=== PATIENT | female | born 1955 | race Caucasian/White ===

== ENCOUNTER 2017-05-24 14:32 | Inpatient (IN) | payer MEDICAID ==
[~2017-05-24] VITALS: Ht 165.1 cm; Wt 72.6 kg
[2017-05-24] MEDS ORDERED: Zyprexa PO (14:46)
--- NOTE | 2017-05-24 14:46 | NUR ---
Pt unable to provide complete information about her home medications, no information sent with pt from [facility] care facility.
--- NOTE | 2017-05-24 14:49 | NUR ---
pt is in room #1b. dr gonzales evalaued the pt.
[2017-05-24 15:09] LABS: BASOPHILS # (AUTO) 0.1 K/uL (0.0-8.0); EOSINOPHILS # (AUTO) 0.1 K/uL (0.0-0.7); EOSINOPHILS % (AUTO) 1.8 % (0.0-7.0); HEMATOCRIT 43.6 % (31.2-41.9); HEMOGLOBIN 15.1 g/dL (10.9-14.3); LYMPHOCYTES # (AUTO) 1.8 K/uL (20.0-40.0); MEAN CORPUSCULAR HEMOGLOBIN 29.8 uug (24.7-32.8); MEAN CORPUSCULAR HGB CONC 35 g/dL (32.3-35.6); MEAN CORPUSCULAR VOLUME 86.4 fL (75.5-95.3); MONOCYTES # (AUTO) 0.5 K/uL (2.0-10.0); MONOCYTES % (AUTO) 7.3 % (0.0-11.0); NEUTROPHILS # (AUTO) 4.7 K/uL (1.8-8.9); NEUTROPHILS % (AUTO) 64.9 % (38.5-71.5); PLATELET COUNT (AUTO) 256 K/uL (179-408); RED BLOOD CELL COUNT(AUTO) 5.05 MIL/uL (3.63-4.92); WHITE BLOOD COUNT (AUTO) 7.2 K/uL (3.8-11.8)
[2017-05-24 15:15] LABS: CREATININE 0.9 mg/dL (0.6-1.3); POTASSIUM 3.9 mmol/L (3.5-5.1)
[2017-05-24 15:30] LABS: BILIRUBIN,TOTAL 0.4 mg/dL (0.2-1.0); TOTAL PROTEIN, SERUM 6.9 g/dL (6.4-8.2)
[2017-05-24 16:08] LABS: *BILIRUBIN,URIN NEGATIVE (NEGATIVE); *BLOOD, URINE NEGATIVE (NEGATIVE); *CLARITY,URINE CLEAR (CLEAR); *COLOR,URINE LIGHT YELLOW (YELLOW); *KETONES,URINE NEGATIVE (NEGATIVE); *PROTEIN,URINE NEGATIVE (NEGATIVE); *UROBILINOGEN,URINE 0.2 E.U./dl (NORMAL); LEUKOCYTE ESTERASE ,URINE NEGATIVE (NEGATIVE); NITRITE, URINE NEGATIVE (NEGATIVE); PH,URINE 6.5 (5.0-8.0); UGLUCOSE NEGATIVE (NEGATIVE)
--- NOTE | 2017-05-24 16:10 | NUR ---
per ER , EPIC call placed
[2017-05-24 16:14] LABS: SQUAMOUS EPITHELIAL CELL,UR FEW /HPF (NONE SEEN); WBC,URINE 0-3 /HPF (0-3)
[2017-05-24] MEDS ORDERED: IV NS 1000 ML 1,000 ML IV ONE (16:30)
--- NOTE | 2017-05-24 17:00 | NUR ---
pt was transfered to room #218. report was given to rn m/s.
--- NOTE | 2017-05-24 17:19 | NUR ---
PT ARRIVED ON A GURNEY CALM, COOPERATIVE, NO SIGN OF RESPIRATORY DISTRESS. PT HAS A COLOSTOMY ON THE LEFT SIDE OF THE ABDOMEN. SKIN IS INTACT, NAILS ARE LONG BUT INTACT. PT VERBALIZES THAT SHE CAME FROM [facility]. HER GOAL IS TO CONTINUE CHEMO THERAPY. PT HAD THE COLOSTOMY IN 2015. IV INTACT. ALLERGIES TO SULFA. HX OF LYMPHOMA. CONTINUE TO MONITOR PT.
[2017-05-24 18:00] VITALS: BP 122/71
--- NOTE | 2017-05-24 18:36 | NUR ---
PT OBSERVED RESTING IN BED EATING DINNER. NO SIGNS OF DISTRESS CALM AND COOPERATIVE. AOX4, CAN VERBALIZE NEEDS. CONTINUE TO MONITOR PT. BP 122/71. PT VERBALIZES THAT SHE CAN NOT AMBULATE SINCE 2014.
--- NOTE | 2017-05-24 19:35 | NUR ---
RECEIVED PT IN BED. PT REQUESTED TO HAVE HER DIAPER CHANGE. ASSISTED TO CHANGE HER DIAPER WHICH WAS SOAKED IN URINE AND HAD LEAKED IN THE UNDERPAD. ASSISTED TO CHANGE COLOSTOMY BAG. STOOL WAS BROWN AND SOFT/FORMED. STOMA BEEFY RED IN COLOR. NO S/S INFECTION OR INFLAMMATION. IV SITE PATENT/INTACT AND FLUSHING WELL. NO S/S INFILTRATION OR INFECTION NOTED. PT ABLE TO RETURN DEMONSTRATE USE OF CALL LIGHT.
[2017-05-24 20:27] VITALS: BP 123/81
[2017-05-24] MEDS ORDERED: QUETIAPINE FUMARATE 25 MG TABLET PO PRN (20:30)
[2017-05-24] MEDS ORDERED: MORPHINE SULFATE 2 MG/1 ML DISP.SYRIN IV PRN (20:30)
[2017-05-24] MEDS ORDERED: TEMAZEPAM 15 MG CAPSULE PO PRN (20:30)
[2017-05-24] MEDS: OLANZAPINE 5 MG TABLET PO SCH (21:36)
[2017-05-24] MEDS ORDERED: OLANZAPINE 5 MG TABLET ONE (21:51)
[2017-05-25 06:00] VITALS: BP 120/60
[2017-05-25 06:41] LABS: THYROID STIMULATING HORMONE 1.965 mIU/mL (0.358-3.740)
[2017-05-25 06:50] LABS: BASOPHILS % (AUTO) 0.6 % (0.0-2.0); EOSINOPHILS # (AUTO) 0.2 K/uL (0.0-0.7); EOSINOPHILS % (AUTO) 3.1 % (0.0-7.0); HEMATOCRIT 39.5 % (31.2-41.9); HEMOGLOBIN 13.3 g/dL (10.9-14.3); LYMPHOCYTES # (AUTO) 2.4 K/uL (20.0-40.0); LYMPHOCYTES % (AUTO) 33.3 % (20.5-51.5); MEAN CORPUSCULAR HEMOGLOBIN 29.5 uug (24.7-32.8); MEAN CORPUSCULAR HGB CONC 34 g/dL (32.3-35.6); MEAN CORPUSCULAR VOLUME 87.4 fL (75.5-95.3); MONOCYTES # (AUTO) 0.7 K/uL (2.0-10.0); MONOCYTES % (AUTO) 9.6 % (0.0-11.0); NEUTROPHILS # (AUTO) 3.8 K/uL (1.8-8.9); NEUTROPHILS % (AUTO) 53.4 % (38.5-71.5); PLATELET COUNT (AUTO) 241 K/uL (179-408); RED BLOOD CELL COUNT(AUTO) 4.52 MIL/uL (3.63-4.92); WHITE BLOOD COUNT (AUTO) 7.2 K/uL (3.8-11.8)
[2017-05-25 06:59] LABS: CREATININE 0.8 mg/dL (0.6-1.3); MAGNESIUM 1.8 mg/dL (1.8-2.4); POTASSIUM 4.2 mmol/L (3.5-5.1)
[2017-05-25] MEDS ORDERED: MORPHINE SULFATE 4 MG/1 ML DISP.SYRIN IV PRN (07:15)
[2017-05-25] MEDS: PANTOPRAZOLE SODIUM 40 MG TABLET.DR PO SCH (07:59)
[2017-05-25] MEDS ORDERED: IOHEXOL 300MG/ML 100 ML INFUS..BTL ONE (08:45)
[2017-05-25] MEDS ORDERED: IV NORMAL SALINE 250 ML IV ONE (08:45)
--- NOTE | 2017-05-25 09:06 | NUR ---
PT ARRIVED FROM CT SCAN. PT IS CALM, COOPERATIVE, NO SIGNS OF RESPIRATORY DISTRESS. STABLE.
--- NOTE | 2017-05-25 09:49 | NUR ---
ZYPREXA PULLED OUT OF THE PYXIS 05/24/17 AT 1251.
[2017-05-25 11:30] VITALS: BP_SYST 84; BP_SYST 96; BP_DIAS 51; BP_DIAS 55
[2017-05-25 15:42] VITALS: BP 99/61
--- NOTE | 2017-05-25 19:33 | NUR ---
pt resting, no signs of respiratory distress, bed at lowest locked position. pt calm. continue to monitor.
[2017-05-25] MEDS: OLANZAPINE 5 MG TABLET PO SCH (20:17)
[2017-05-25] MEDS: ATORVASTATIN 20 MG TABLET PO SCH (20:17)
[2017-05-25 20:42] VITALS: BP 122/71
[2017-05-25] MEDS: IV 1/2NS 1000 ML 1,000 ML IV PRN (22:19)
[2017-05-26 04:35] VITALS: BP 115/81
--- NOTE | 2017-05-26 05:51 | NUR ---
pt alert,oriented, admitted for generalized weakness,pt been unable to walk since 2014, in fact pt have slight footdrop to left foot, pt still able to turn and move in the bed, voiding using bedpan .colostomy with formed stool, intact and clean.continue with iv fluids, denies any pain overnight,slept well,vss,afebrile.
[2017-05-26] MEDS: PANTOPRAZOLE SODIUM 40 MG TABLET.DR PO SCH (06:24)
--- NOTE | 2017-05-26 07:40 | NUR ---
RECEIVED PT IN BED.. IV SITE PATENT/INTACT AND FLUSHING WELL. NO S/S INFILTRATION OR INFECTION NOTED. PT ABLE TO RETURN DEMONSTRATE USE OF CALL LIGHT.
[2017-05-26 10:54] VITALS: BP 116/71
[2017-05-26] MEDS: ONDANSETRON 4 MG/2 ML VIAL IV PRN (10:56)
--- NOTE | 2017-05-26 11:00 | NUR ---
PT SEEN BY NEUROLOGIST
[2017-05-26] MEDS: IV 1/2NS 1000 ML 1,000 ML IV PRN (12:39)
[2017-05-26 15:22] VITALS: BP 111/62
[2017-05-26] MEDS: ACETAMINOPHEN 325 MG TABLET PO PRN ×2 (15:37→21:14)
[2017-05-26 20:11] VITALS: BP 119/69
[2017-05-26] MEDS: OLANZAPINE 5 MG TABLET PO SCH (21:14)
[2017-05-26] MEDS: ATORVASTATIN 20 MG TABLET PO SCH (21:14)
[2017-05-27 04:06] LABS: VIT D, 25-HYDROXY 19.6 ng/mL (30.0-100.0)
--- NOTE | 2017-05-27 05:30 | NUR ---
NSG: NO ACUTE DISTRESS NOTED. DENIES DISCOMFORT. V/S STABLE. ALL NEEDS ATTENDED.
[2017-05-27] MEDS: PANTOPRAZOLE SODIUM 40 MG TABLET.DR PO SCH (06:16)
[2017-05-27 06:32] VITALS: BP 122/69
[2017-05-27 07:01] LABS: BASOPHILS # (AUTO) 0.1 K/uL (0.0-8.0); EOSINOPHILS # (AUTO) 0.2 K/uL (0.0-0.7); EOSINOPHILS % (AUTO) 3.1 % (0.0-7.0); HEMATOCRIT 38.4 % (31.2-41.9); HEMOGLOBIN 12.9 g/dL (10.9-14.3); LYMPHOCYTES # (AUTO) 1.9 K/uL (20.0-40.0); LYMPHOCYTES % (AUTO) 29.4 % (20.5-51.5); MEAN CORPUSCULAR HEMOGLOBIN 29.2 uug (24.7-32.8); MEAN CORPUSCULAR HGB CONC 34 g/dL (32.3-35.6); MEAN CORPUSCULAR VOLUME 86.8 fL (75.5-95.3); MONOCYTES # (AUTO) 0.6 K/uL (2.0-10.0); MONOCYTES % (AUTO) 9.3 % (0.0-11.0); NEUTROPHILS # (AUTO) 3.7 K/uL (1.8-8.9); NEUTROPHILS % (AUTO) 57.2 % (38.5-71.5); PLATELET COUNT (AUTO) 236 K/uL (179-408); RED BLOOD CELL COUNT(AUTO) 4.43 MIL/uL (3.63-4.92); WHITE BLOOD COUNT (AUTO) 6.4 K/uL (3.8-11.8)
[2017-05-27 07:25] LABS: CREATININE 0.8 mg/dL (0.6-1.3); MAGNESIUM 1.9 mg/dL (1.8-2.4); PHOSPHOROUS 4.1 mg/dL (2.5-4.9); POTASSIUM 3.8 mmol/L (3.5-5.1)
[2017-05-27 10:44] VITALS: BP 111/64
[2017-05-27] MEDS: ONDANSETRON 4 MG/2 ML VIAL IV PRN (12:11)
[2017-05-27 15:19] VITALS: BP 121/68
[2017-05-27 20:14] VITALS: BP 101/55
[2017-05-27] MEDS: ATORVASTATIN 20 MG TABLET PO SCH (20:44)
[2017-05-27] MEDS: OLANZAPINE 5 MG TABLET PO SCH (20:47)
[2017-05-27] MEDS: ACETAMINOPHEN 325 MG TABLET PO PRN (20:57)
[2017-05-28] MEDS: PANTOPRAZOLE SODIUM 40 MG TABLET.DR PO SCH (06:06)
[2017-05-28 06:15] VITALS: BP 101/59
--- NOTE | 2017-05-28 06:36 | NUR ---
PATIENT IN BED ASLEEP AT THIS TIME. NO DISTRESS NOTED. VITAL SIGNS STABLE. OFFERED BEDPAN NEEDED. ALL NEEDS ATTENDED DO. BED LOCKED AND IN LOW POSITION WITH CALL LIGHT WITHIN REACH.
--- NOTE | 2017-05-28 08:00 | NUR ---
AWAKE ALERT AND ORIENTED X3 NO SIGNS OF DISTRESS OR PAIN
[2017-05-28] MEDS ORDERED: ATOR20TA PO (10:45)
[2017-05-28] MEDS ORDERED: QUET25TA PO (10:45)
--- NOTE | 2017-05-28 11:00 | NUR ---
SEEN BY DR MORRIS WITH DC PLAN ORDER [employer] TEACHER MADE AWARE
[2017-05-28 11:05] VITALS: BP 100/58
[2017-05-28] MEDS ORDERED: INFLUENZA VACCINE 2017-2018 0.5 ML DISP.SYRIN IM ONE (12:30)
[2017-05-28 15:32] VITALS: BP 106/64
[2017-05-28 20:00] VITALS: BP 122/85
[2017-05-28] MEDS: OLANZAPINE 5 MG TABLET PO SCH (20:13)
[2017-05-28] MEDS: ATORVASTATIN 20 MG TABLET PO SCH (21:41)
[2017-05-29] MEDS: PANTOPRAZOLE SODIUM 40 MG TABLET.DR PO SCH (06:02)
--- NOTE | 2017-05-29 06:48 | NUR ---
End of shift report. Patient supposed to be discharged last night but didn't happen. No one picked her up despite of multiple follow-ups w/ the [facility]. No acute resp. distress. Report given to Maye.
[2017-05-29 06:53] VITALS: BP 98/52
--- NOTE | 2017-05-29 07:30 | NUR ---
PATIENT IN BED ASLEEP AT THIS TIME. NO DISTRESS NOTED. VITAL SIGNS STABLE. . ALL NEEDS ATTENDED DO. BED LOCKED AND IN LOW POSITION WITH CALL LIGHT WITHIN REACH.
[2017-05-29 11:41] VITALS: BP 99/56
[2017-05-29 15:24] VITALS: BP 91/48
[2017-05-29 16:10] VITALS: BP 105/50
--- NOTE | 2017-05-29 19:30 | NUR ---
PT RECEIVED IN BED, AWAKE. A/OX4. ABLE TO MAKE NEEDS KNOWN. V/S STABLE. IN NO ACUTE DISTRESS. NO C/O PAIN AT THIS TIME. NO IV IN PLACE. ON RA, TOLERATING WELL. AFEBRILE. HOB ELEVATED. SAFETY MEASURES IMPLEMENTED. CALL LIGHT WITHIN REACH.
[2017-05-29 20:13] VITALS: BP 103/59
[2017-05-29] MEDS: OLANZAPINE 5 MG TABLET PO SCH (20:58)
[2017-05-29] MEDS: ATORVASTATIN 20 MG TABLET PO SCH (20:58)
[2017-05-30 04:46] VITALS: BP 92/52
--- NOTE | 2017-05-30 05:47 | NUR ---
END OF SHIFT NOTES. PT SLEPT WELL THROUGHOUT SHIFT. IN STABLE CONDITION. NO IV IN PLACE. COLOSTOMY INTACT AND PATENT. ALL NEEDS ATTENDED. SAFETY MAINTAINED. CALL LIGHT WITHIN REACH
[2017-05-30] MEDS: PANTOPRAZOLE SODIUM 40 MG TABLET.DR PO SCH (06:04)
[2017-05-30 11:26] VITALS: BP 95/53
[2017-05-30 15:44] VITALS: BP 101/52
--- NOTE | 2017-05-30 19:08 | NUR ---
D/C ORDERS RECEIVED NOTED AND CARRIED OUT.RN REPORT GIVEN OVER TO THE P[facility]ITENT[facility],PT LEFT THE FACILITY VIA AMBULANCES IN STABLE CONDITION.
== END 2017-05-30 19:10 | DRG 248 ==
LOC: ER 14:33 → MED 16:53
PROVIDERS: ADMIT Internal Medicine; ATTEND Internal Medicine
DX: K65.9 Peritonitis, unspecified (principal); C85.90 Non-Hodgkin lymphoma, unspecified, unspecified site; D68.59 Other primary thrombophilia; F25.9 Schizoaffective disorder, unspecified; Z85.048 Personal history of other malignant neoplasm of rectum, rectosigmoid junction, and anus; Z92.21 Personal history of antineoplastic chemotherapy; Z93.3 Colostomy status; Z90.49 Acquired absence of other specified parts of digestive tract; Z74.09 Other reduced mobility; K57.30 Diverticulosis of large intestine without perforation or abscess without bleeding; M21.372 Foot drop, left foot; M21.371 Foot drop, right foot; E78.5 Hyperlipidemia, unspecified; R73.9 Hyperglycemia, unspecified; E66.3 Overweight; Z68.26 Body mass index [BMI] 26.0-26.9, adult; G57.93 Unspecified mononeuropathy of bilateral lower limbs; R41.0 Disorientation, unspecified
CPT/HCPCS: 36415; 70030-TC; 71045; 82306; 82378; 83550; 83615; 83735; 84100; 84443; 85025; 85610; 90686; 93005; A4663; J2405; J3490; J7030; J7050; Q9967